=== PATIENT | male | born 2000 | race Caucasian/White ===

== ENCOUNTER 2020-09-14 09:13 | Inpatient (IN) | payer OTHER, SELFPAY ==
[2020-09-14] MEDS ORDERED: Zolpidem Tartrate 5 MG TAB PO PRN (09:41)
[2020-09-14] MEDS ORDERED: Senokot S 8.6-50 MG TAB PO PRN (09:41)
[2020-09-14] MEDS ORDERED: Loperamide HCl 2 MG CAP PO PRN (09:41)
[2020-09-14] MEDS ORDERED: Guaifenesin DM 100-10/5 ML UDCUP PO PRN (09:41)
[2020-09-14] MEDS ORDERED: Loratadine 10 MG TAB PO PRN (09:41)
[2020-09-14] MEDS ORDERED: Cepastat Lozenges 1 LOZ PO PRN (09:41)
[2020-09-14] MEDS ORDERED: Acetaminophen 325 MG TAB PO PRN (09:41)
[2020-09-14] MEDS ORDERED: Sodium Chloride 0.65% Nasal 44 ML BOT EA NARE PRN (09:41)
[2020-09-14] MEDS ORDERED: hydrALAZINE 20 MG/ML VIAL SLOW IVP PRN (09:41)
[2020-09-14] MEDS ORDERED: Ondansetron PF 4 MG/2 ML Vial IVP PRN (09:41)
[2020-09-14] MEDS ORDERED: Ondansetron ODT 4 MG TAB PO PRN (09:41)
[2020-09-14] MEDS ORDERED: HYDROcodone/Acetaminophen 5/325 mg Tablet PO PRN (09:41)
[2020-09-14] MEDS ORDERED: Calcium Carbonate 500 MG ChewTAB PO PRN (09:41)
[2020-09-14] MEDS ORDERED: Bisacodyl 10 MG SUPP PR PRN (09:41)
[2020-09-14] MEDS ORDERED: Enoxaparin Sodium 40 MG/0.4 ML SYRINGE SC SCH (09:45)
[2020-09-14] MEDS ORDERED: HumaLOG 300 UNITS/3 ML VIAL SC PRN ×2 (09:47)
[2020-09-14] MEDS ORDERED: Dextrose 5% in Water 1,000 ML IV PRN (09:47)
[2020-09-14] MEDS ORDERED: Dextrose 50% Abboject 50 ML SYRINGE SLOW IVP PRN (09:47)
[2020-09-14] MEDS ORDERED: Multivitamins, Adult 10 ML, Folic Acid 1 MG, Thiamine HCl 100 MG in Dextrose 5 %-0.45 %... IV SCH (10:00)
[2020-09-14 10:29] VITALS: BMI 18.0
[2020-09-14 10:37] VITALS: BP 125/81
[2020-09-14] MEDS ORDERED: Thiamine HCl 200 MG/2 ML VIAL SLOW IVP SCH (10:45)
[2020-09-14] MEDS ORDERED: Folic Acid 1 MG, Multivitamins, Adult 10 ML in Dextrose 5 %-0.45 % NaCl 1,000 ML IV SCH (10:45)
[2020-09-14] MEDS ORDERED: DORNASE ALFA 1 MG/ML NEB SCH (18:30)
[2020-09-14] MEDS: Albuterol Sulfate 2.5 mg/3 ml Neb NEB SCH (19:42)
[2020-09-14] MEDS: Mometasone 200 MCG/Formoterol 5 MCG 120 PUFF INHALER INH SCH (19:42)
[2020-09-14] MEDS: Sodium Chloride For Inhalation 0.9% 3 ML NEB NEB SCH (19:49)
[2020-09-14] MEDS: Famotidine 20 MG TAB PO SCH (20:23)
[2020-09-14] MEDS ORDERED: Ursodiol 300 MG CAP PO SCH (21:00)
[2020-09-14] MEDS ORDERED: Mirtazapine 15 MG TAB PO SCH (21:00)
[2020-09-15 03:36] LABS: #Eosinphils 0.2 thou/uL (0.0-0.7); #Lymphocytes 2.7 thou/uL (1.20-3.40); #Monocytes 0.4 thou/uL (0.11-0.59); #Neutrophils 3.8 thou/uL (1.40-6.50); %Basophils 0.5 % (0.0-1.0); %Eosinophils 2.1 % (0.0-10.0); %Lymphocytes 38.3 % (21.0-51.0); %Monocytes 6.1 % (0.0-10.0); %Neutrophils 52.9 % (42.0-75.0); Hemoglobin 12.7 g/dL (14.0-18.0); Mean Corpuscular HGB CONC 33.4 g/dL (32.0-36.0); Mean Corpuscular Hemoglobin 32.1 pg (27.0-31.0); Mean Corpuscular Volume 95.8 fL (78.0-98.0); Platelet Count 192 thou/uL (130-400); Red Blood Cell (RBC) Count 3.97 mill/uL (4.70-6.10); White Blood Cell (WBC) Count 7.1 thou/uL (4.8-10.8)
[2020-09-15 03:46] LABS: Phosphorus 3.5 mg/dL (2.3-4.7)
[2020-09-15 03:49] LABS: ALT (SGPT) 177 U/L (8-55); AST (SGOT) 111 U/L (5-34); Albumin 3.6 g/dL (3.5-5.0); Alkaline Phosphatase 115 U/L (40-110); Anion Gap 12 mmol/L (10-20); BUN (Urea Nitrogen) 10 mg/dL (8.9-20.6); Bilirubin, Total 2.3 mg/dL (0.2-1.2); Calc. Creatinine Clearance 119 mL/min (70-130); Calcium 8.7 mg/dL (7.8-10.44); Carbon Dioxide 24 mmol/L (22-29); Chloride 106 mmol/L (98-107); Globulin 2.1 g/dL (2.4-3.5); Glucose 203 mg/dL (70-105); Hemoglobin A1c 5.1 % (4.0-6.0); Protein, Total 5.7 g/dL (6.0-8.3); Sodium 138 mmol/L (136-145)
[2020-09-15] MEDS: Albuterol Sulfate 2.5 mg/3 ml Neb NEB SCH (07:27)
[2020-09-15] MEDS: Sodium Chloride For Inhalation 0.9% 3 ML NEB NEB SCH (07:29)
[2020-09-15] MEDS: Mometasone 200 MCG/Formoterol 5 MCG 120 PUFF INHALER INH SCH (07:29)
[2020-09-15 07:32] VITALS: TEMP 98
[2020-09-15] MEDS: Famotidine 20 MG TAB PO SCH (07:39)
[2020-09-15] MEDS ORDERED: Pancrelipase DR 12,000 1 CAP PO SCH (08:00)
[2020-09-15] MEDS ORDERED: FLUoxetine HCl 20 MG CAP PO SCH (09:00)
[2020-09-15 09:25] LABS: HBSAg Index 0.21 S/CO (0-0.99); Hep A IgM AB Non-Reactive (NonReactive); Hep A IgM S/CO 0.19 S/CO (0-0.79); Hep B Surf Ag Non-Reactive S/CO (NonReactive); Hep C IgG Ab Non-Reactive (NonReactive); Hep C Index 0.06 S/CO (0-0.79); Hepatitis B Core IgM Abs Non-Reactive (NonReactive)
== END 2020-09-15 11:35 | disposition home or self-care (01) | DRG 923 ==
LOC: IMCU/EMU 09:13
PROVIDERS: ADMIT Internal Medicine; ATTEND Internal Medicine
PROC: HZ2ZZZZ Detoxification Services for Substance Abuse Treatment (ICD-10-PCS; principal; 2020-09-14)
DX: T68.XXXA Hypothermia, initial encounter (principal); E84.9 Cystic fibrosis, unspecified; E16.2 Hypoglycemia, unspecified; E87.6 Hypokalemia; Z20.822 Contact with and (suspected) exposure to COVID-19; F10.10 Alcohol abuse, uncomplicated; Z90.49 Acquired absence of other specified parts of digestive tract
CPT/HCPCS: 36415; 36416; 80053; 80074; 83036; 83735; 84100; 85025; 94640; J1650; J1815; J3411; J7042; J7611